=== PATIENT | male | born 1950 | race Asian ===

== ENCOUNTER 2017-05-19 12:19 | Inpatient (IN) | payer SELFPAY ==
[~2017-05-19] VITALS: Ht 170.2 cm; Wt 56.3 kg
[2017-05-19] MEDS ORDERED: CALC-1038 PO (12:29)
[2017-05-19] MEDS ORDERED: EPOE4000 SQ (12:29)
[2017-05-19] MEDS ORDERED: AMLO-512 PO (12:29)
[2017-05-19] MEDS ORDERED: INSNPH SQ (12:29)
[2017-05-19] MEDS ORDERED: FERR-89 PO (12:29)
[2017-05-19 12:37] LABS: GLUCOSE,POINT OF CARE 233 MG/DL (70-110)
[2017-05-19 13:05] LABS: BASOPHILS % (AUTO) 0.5 % (0.0-2.0); HEMATOCRIT 44.7 % (41-53); HEMOGLOBIN 14.9 g/dL (13.5-17.5); LYMPHOCYTES % (AUTO) 25.2 % (22.0-44.0); MEAN CORPUSCULAR HEMOGLOBIN 29.2 pg (26.0-34.0); MEAN CORPUSCULAR HGB CONC 33.4 G/dL (31.0-37.0); MEAN CORPUSCULAR VOLUME 87 fL (80-100); MONOCYTES # (AUTO) 0.7 K/uL (0.1-1.0); NEUTROPHILS # (AUTO) 3.9 K/uL (1.8-7.7); NEUTROPHILS % (AUTO) 49.7 % (40.0-70.0); PLATELET COUNT (AUTO) 131 K/uL (150-450); RED BLOOD CELL COUNT(AUTO) 5.12 MIL/uL (4.50-5.90); RED CELL DISTRIBUTION WIDTH 15.2 % (11.5-14.5); WHITE BLOOD COUNT (AUTO) 7.9 K/uL (4.5-11.0)
[2017-05-19 13:10] LABS: EOSINOPHILS % (AUTO) 15.6 % (1.0-6.0)
[2017-05-19 13:14] LABS: ANION GAP 14 mmol/L (8-16); CALCIUM, TOTAL 8.9 mg/dL (8.8-10.5); CARBON DIOXIDE 21 mmol/L (22-29); CHLORIDE 103 mmol/L (98-107); CREATININE 10.04 mg/dL (0.60-1.30); GLOMERULAR FILTR. RATE CALC 5 mL/min (>60); POTASSIUM 4.3 mmol/L (3.5-5.1); SODIUM SERUM 138 mmol/L (136-145); UREA NITROGEN, BLOOD 86 mg/dL (7-18)
[2017-05-19 13:16] LABS: APPEARANCE,URINE CLEAR (CLEAR); GLUCOSE, URINE (UA) 100 mg/dL (NEGATIVE); KETONES,URINE NEGATIVE (NEGATIVE); LEUKOCYTE ESTERASE ,URINE NEGATIVE (NEGATIVE); PH,URINE 5.5 (5.0-8.0); PROTEIN,URINE SEE CONFIRM (NEGATIVE)
[2017-05-19 13:23] LABS: ADD UA MICROSCOPIC YES; OCCULT BLOOD,URINE SMALL (NEGATIVE); SULFOSALICYLIC ACID,URINE 2+ (Negative)
[2017-05-19 13:24] LABS: SQUAMOUS EPITHELIAL CELL,UR Rare /LPF (None Seen); WBC,URINE 0-2 /HPF (0-5)
[2017-05-19 13:34] LABS: B-TYPE NATRIURETIC PEPTIDE 523 pg/mL (0-100)
[2017-05-19 13:38] LABS: ALANINE AMINOTRANSFERASE 20 U/L (12-78); ALBUMIN 3.3 g/dL (3.4-5.0); ASPARTATE AMINOTRANSFERASE 18 U/L (15-37); BILIRUBIN,TOTAL 0.4 mg/dL (0.1-1.0); CREATINE KINASE MB 1.1 ng/mL (0-5); CREATINE KINASE, TOTAL 108 U/L (39-308); TOTAL PROTEIN, SERUM 7.4 g/dL (6.4-8.2)
[2017-05-19] MEDS ORDERED: 0.9% SODIUM CHLORIDE 10 ML SYRINGE IVP PRN (14:00)
[2017-05-19] MEDS ORDERED: ONDANSETRON HCL 4 MG/2 ML VIAL IVP PRN (14:00)
[2017-05-19] MEDS ORDERED: ACETAMINOPHEN 325 MG TABLET PO PRN (14:00)
[2017-05-19] MEDS: VITAMIN B COMP/VIT C/FOLIC ACID CAPSULE PO SCH (15:00)
[2017-05-19 16:04] VITALS: BP 151/65
[2017-05-19] MEDS ORDERED: INFLUENZA VIRUS VACCINE QVS 2017-18 (3YR+)/PF 60 MCG/0.5 ML SYRINGE IM ONE (16:30)
[2017-05-19] MEDS ORDERED: HEPARIN SODIUM,PORCINE 1,000 UNITS/ML VIAL IVP ONE (17:06)
[2017-05-19 17:08] LABS: GLUCOSE,POINT OF CARE 152 MG/DL (70-110)
[2017-05-19] MEDS ORDERED: SODIUM CHLORIDE 0.9% 2,000 ML IV ONE (17:12)
[2017-05-19 23:15] VITALS: BP 161/64
[2017-05-19] MEDS: AmLODIPine BESYLATE 10 MG TABLET PO SCH (23:17)
[2017-05-19] MEDS: PROMETHAZINE HCL/CODEINE 6.25-10MG/5ML SYRUP UDCUP PO PRN (23:17)
[2017-05-20] VITALS (7 sets, daily range): BP systolic 135–156; BP diastolic 58–73
[2017-05-20] MEDS ORDERED: HEPARIN SODIUM,PORCINE 5,000 UNITS/ML VIAL IV PRN (01:15)
[2017-05-20 01:34] LABS: GLUCOSE,POINT OF CARE 118 MG/DL (70-110)
[2017-05-20] MEDS ORDERED: ACETAMINOPHEN 325 MG TABLET PO PRN (03:30)
[2017-05-20 06:12] LABS: GLUCOSE COMMENT 1 Received Meds; GLUCOSE,POINT OF CARE 169 MG/DL (70-110)
[2017-05-20 06:54] LABS: CHOL/HDL RATIO 2.5 (4.2-7.3)
[2017-05-20] MEDS: VITAMIN B COMP/VIT C/FOLIC ACID CAPSULE PO SCH (09:16)
[2017-05-20] MEDS: AmLODIPine BESYLATE 10 MG TABLET PO SCH (09:16)
[2017-05-20] MEDS ORDERED: HYDROCODONE/ACETAMINOPHEN 5-325 MG TABLET PO PRN (10:00)
[2017-05-20] MEDS ORDERED: BISACODYL 10 MG RECTAL RECTAL SUPPOSITORY PR PRN (10:00)
[2017-05-20] MEDS ORDERED: DEXTROSE 50%-WATER 25 GM/50 ML SYRINGE IVP PRN (10:00)
[2017-05-20] MEDS ORDERED: AmLODIPine BESYLATE 10 MG TABLET PO SCH (10:00)
[2017-05-20] MEDS ORDERED: MAGNESIUM HYDROXIDE SUSPENSION 30 ML UDCUP PO PRN (10:00)
[2017-05-20] MEDS ORDERED: ONDANSETRON HCL 4 MG/2 ML VIAL IVP PRN (10:00)
[2017-05-20] MEDS ORDERED: ZOLPIDEM TARTRATE 5 MG TABLET PO PRN (10:00)
[2017-05-20 11:48] LABS: GLUCOSE COMMENT 1 Received Meds; GLUCOSE,POINT OF CARE 213 MG/DL (70-110)
[2017-05-20] MEDS: INSULIN ASPART 100 UNITS/ML SQ PRN ×2 (11:52→17:58)
[2017-05-20] MEDS: HEPARIN SODIUM,PORCINE 5,000 UNITS/ML VIAL SQ SCH (17:31)
[2017-05-20] MEDS: FERROUS SULFATE 325 MG EC TABLET PO SCH (17:32)
[2017-05-20] MEDS: CALCIUM OYSTER SHELL 500 MG TABLET PO SCH ×2 (17:32→22:04)
[2017-05-20 18:07] LABS: GLUCOSE COMMENT 1 Received Meds; GLUCOSE,POINT OF CARE 225 MG/DL (70-110)
[2017-05-20] MEDS: ALBUTEROL SULFATE 2.5 MG/0.5 ML NEB SOLUTION NEB SCH (20:00)
[2017-05-20] MEDS: DOCUSATE SODIUM 100 MG CAPSULE PO SCH (22:04)
[2017-05-20 22:27] LABS: GLUCOSE,POINT OF CARE 91 MG/DL (70-110)
[2017-05-21] MEDS: HEPARIN SODIUM,PORCINE 5,000 UNITS/ML VIAL SQ SCH ×3 (00:37→17:16)
[2017-05-21 00:41] VITALS: BP 150/67
[2017-05-21] MEDS: ALBUTEROL SULFATE 2.5 MG/0.5 ML NEB SOLUTION NEB SCH ×4 (02:17→20:23)
[2017-05-21 04:44] VITALS: BP 151/67
[2017-05-21] MEDS: PROMETHAZINE HCL/CODEINE 6.25-10MG/5ML SYRUP UDCUP PO PRN (06:20)
[2017-05-21] MEDS: INSULIN ASPART 100 UNITS/ML SQ PRN ×2 (06:39→17:43)
[2017-05-21 06:47] LABS: GLUCOSE,POINT OF CARE 193 MG/DL (70-110)
[2017-05-21 07:22] LABS: CALCIUM, TOTAL 8.6 mg/dL (8.8-10.5); CREATININE 7.25 mg/dL (0.60-1.30); MAGNESIUM 2.4 mg/dL (1.80-2.40); PHOSPHORUS 4.1 mg/dL (2.5-4.9); POTASSIUM 3.9 mmol/L (3.5-5.1)
[2017-05-21 07:30] VITALS: BP 164/78
[2017-05-21] MEDS: AmLODIPine BESYLATE 10 MG TABLET PO SCH (08:13)
[2017-05-21] MEDS: VITAMIN B COMP/VIT C/FOLIC ACID CAPSULE PO SCH (08:13)
[2017-05-21] MEDS: DOCUSATE SODIUM 100 MG CAPSULE PO SCH (08:13)
[2017-05-21] MEDS: FERROUS SULFATE 325 MG EC TABLET PO SCH ×2 (08:13→17:45)
[2017-05-21] MEDS: PANTOPRAZOLE SODIUM 40 MG DR TABLET PO SCH (08:13)
[2017-05-21] MEDS: CALCIUM OYSTER SHELL 500 MG TABLET PO SCH ×2 (08:29→17:16)
[2017-05-21] MEDS: ACETAMINOPHEN 325 MG TABLET PO PRN (10:27)
[2017-05-21 13:07] LABS: GLUCOSE,POINT OF CARE 211 MG/DL (70-110)
[2017-05-21] MEDS ORDERED: SODIUM CHLORIDE 0.9% 1,000 ML IV ONE ×2 (18:37)
[2017-05-21] MEDS ORDERED: MANNITOL 25%-12.5 GM/50 ML VIAL IVP PRN (20:00)
[2017-05-21 20:16] LABS: GLUCOSE,POINT OF CARE 242 MG/DL (70-110)
[2017-05-22] VITALS (7 sets, daily range): BP systolic 138–164; BP diastolic 58–81
[2017-05-22] MEDS: CALCIUM OYSTER SHELL 500 MG TABLET PO SCH ×4 (00:01→21:01)
[2017-05-22] MEDS: DOCUSATE SODIUM 100 MG CAPSULE PO SCH ×3 (00:01→21:01)
[2017-05-22] MEDS: HEPARIN SODIUM,PORCINE 5,000 UNITS/ML VIAL SQ SCH ×3 (00:01→21:02)
[2017-05-22 01:17] LABS: GLUCOSE,POINT OF CARE 125 MG/DL (70-110)
[2017-05-22] MEDS: ALBUTEROL SULFATE 2.5 MG/0.5 ML NEB SOLUTION NEB SCH ×4 (02:41→21:20)
[2017-05-22] MEDS: PROMETHAZINE HCL/CODEINE 6.25-10MG/5ML SYRUP UDCUP PO PRN (02:49)
[2017-05-22] MEDS: MORPHINE SULFATE 2 MG/ML SYRINGE IVP PRN (02:49)
[2017-05-22 06:07] LABS: GLUCOSE COMMENT 1 Received Meds; GLUCOSE,POINT OF CARE 217 MG/DL (70-110)
[2017-05-22] MEDS: INSULIN ASPART 100 UNITS/ML SQ PRN ×3 (06:16→22:22)
[2017-05-22] MEDS: PANTOPRAZOLE SODIUM 40 MG DR TABLET PO SCH (08:53)
[2017-05-22] MEDS: FERROUS SULFATE 325 MG EC TABLET PO SCH ×2 (08:54→17:59)
[2017-05-22] MEDS: AmLODIPine BESYLATE 10 MG TABLET PO SCH (08:54)
[2017-05-22] MEDS: ACETAMINOPHEN 325 MG TABLET PO PRN ×2 (08:55→21:13)
[2017-05-22] MEDS: VITAMIN B COMP/VIT C/FOLIC ACID CAPSULE PO SCH (08:59)
[2017-05-22 12:18] LABS: GLUCOSE,POINT OF CARE 186 MG/DL (70-110)
[2017-05-22 18:42] LABS: GLUCOSE,POINT OF CARE 136 MG/DL (70-110)
[2017-05-22 22:41] LABS: GLUCOSE COMMENT 1 Received Meds; GLUCOSE,POINT OF CARE 155 MG/DL (70-110)
[2017-05-23 02:57] LABS: GLUCOSE COMMENT 1 Post Meal; GLUCOSE,POINT OF CARE 154 MG/DL (70-110)
[2017-05-23] MEDS: ALBUTEROL SULFATE 2.5 MG/0.5 ML NEB SOLUTION NEB SCH ×4 (03:27→20:41)
[2017-05-23 05:00] VITALS: BP 144/56
[2017-05-23 05:08] LABS: GLUCOSE COMMENT 1 Received Meds; GLUCOSE,POINT OF CARE 174 MG/DL (70-110)
[2017-05-23] MEDS: INSULIN ASPART 100 UNITS/ML SQ PRN ×3 (06:06→17:53)
[2017-05-23 08:00] VITALS: BP 161/86
[2017-05-23] MEDS: DOCUSATE SODIUM 100 MG CAPSULE PO SCH ×2 (09:31→21:00)
[2017-05-23] MEDS: HEPARIN SODIUM,PORCINE 5,000 UNITS/ML VIAL SQ SCH ×2 (09:31→23:28)
[2017-05-23] MEDS: PANTOPRAZOLE SODIUM 40 MG DR TABLET PO SCH (09:31)
[2017-05-23] MEDS: CALCIUM OYSTER SHELL 500 MG TABLET PO SCH ×3 (09:31→23:28)
[2017-05-23] MEDS: VITAMIN B COMP/VIT C/FOLIC ACID CAPSULE PO SCH (09:31)
[2017-05-23] MEDS: FERROUS SULFATE 325 MG EC TABLET PO SCH ×2 (09:31→17:52)
[2017-05-23] MEDS ORDERED: MANNITOL 25%-12.5 GM/50 ML VIAL IVP PRN (10:45)
[2017-05-23 12:10] VITALS: BP 180/80
[2017-05-23 14:32] LABS: GLUCOSE COMMENT 1 Received Meds; GLUCOSE,POINT OF CARE 158 MG/DL (70-110)
[2017-05-23 16:21] VITALS: BP 159/72
[2017-05-23] MEDS: AmLODIPine BESYLATE 10 MG TABLET PO SCH (17:52)
[2017-05-23 19:17] LABS: GLUCOSE,POINT OF CARE 159 MG/DL (70-110)
[2017-05-23 20:00] VITALS: BP 179/87
[2017-05-23] MEDS: CloNIDine HCL 0.1 MG TABLET PO PRN (20:35)
[2017-05-23] MEDS: MORPHINE SULFATE 2 MG/ML SYRINGE IVP PRN (20:47)
[2017-05-23 22:27] LABS: GLUCOSE COMMENT 1 Juice/Food/D50 Given; GLUCOSE,POINT OF CARE 143 MG/DL (70-110)
[2017-05-23 23:53] VITALS: BP 145/70
[2017-05-24] VITALS (7 sets, daily range): BP systolic 126–169; BP diastolic 48–98
[2017-05-24] MEDS: ALBUTEROL SULFATE 2.5 MG/0.5 ML NEB SOLUTION NEB SCH ×4 (02:00→20:42)
[2017-05-24] MEDS: CloNIDine HCL 0.1 MG TABLET PO PRN (05:24)
[2017-05-24] MEDS: INSULIN ASPART 100 UNITS/ML SQ PRN ×3 (06:13→21:25)
[2017-05-24 06:42] LABS: GLUCOSE COMMENT 1 Juice/Food/D50 Given; GLUCOSE,POINT OF CARE 167 MG/DL (70-110)
[2017-05-24] MEDS: VITAMIN B COMP/VIT C/FOLIC ACID CAPSULE PO SCH (08:11)
[2017-05-24] MEDS: PANTOPRAZOLE SODIUM 40 MG DR TABLET PO SCH (08:11)
[2017-05-24] MEDS: HEPARIN SODIUM,PORCINE 5,000 UNITS/ML VIAL SQ SCH ×2 (08:11→21:24)
[2017-05-24] MEDS: AmLODIPine BESYLATE 10 MG TABLET PO SCH (08:11)
[2017-05-24] MEDS: DOCUSATE SODIUM 100 MG CAPSULE PO SCH ×2 (08:11→21:24)
[2017-05-24] MEDS: FERROUS SULFATE 325 MG EC TABLET PO SCH ×2 (08:11→17:11)
[2017-05-24] MEDS: CALCIUM OYSTER SHELL 500 MG TABLET PO SCH ×3 (12:25→21:24)
[2017-05-24 18:03] LABS: GLUCOSE,POINT OF CARE 235 MG/DL (70-110)
[2017-05-24 18:03] LABS: GLUCOSE,POINT OF CARE 110 MG/DL (70-110)
[2017-05-24] MEDS ORDERED: 0.9% SODIUM CHLORIDE 5 ML NEB SOLUTION NEB ONE (20:39)
[2017-05-24 21:02] LABS: GLUCOSE,POINT OF CARE 173 MG/DL (70-110)
[2017-05-25 00:01] VITALS: BP 142/54
[2017-05-25] MEDS: ALBUTEROL SULFATE 2.5 MG/0.5 ML NEB SOLUTION NEB SCH ×4 (01:54→20:18)
[2017-05-25 04:52] VITALS: BP 144/59
[2017-05-25 07:22] LABS: GLUCOSE,POINT OF CARE 121 MG/DL (70-110)
[2017-05-25 07:39] VITALS: BP 167/69
[2017-05-25] MEDS: FERROUS SULFATE 325 MG EC TABLET PO SCH ×2 (08:13→17:32)
[2017-05-25] MEDS: VITAMIN B COMP/VIT C/FOLIC ACID CAPSULE PO SCH (08:13)
[2017-05-25] MEDS: PANTOPRAZOLE SODIUM 40 MG DR TABLET PO SCH (08:13)
[2017-05-25] MEDS: AmLODIPine BESYLATE 10 MG TABLET PO SCH (08:13)
[2017-05-25] MEDS: DOCUSATE SODIUM 100 MG CAPSULE PO SCH ×2 (08:13→20:34)
[2017-05-25] MEDS: HEPARIN SODIUM,PORCINE 5,000 UNITS/ML VIAL SQ SCH ×2 (08:14→20:34)
[2017-05-25] MEDS: CALCIUM OYSTER SHELL 500 MG TABLET PO SCH ×3 (08:14→20:34)
[2017-05-25 11:17] VITALS: BP 167/71
[2017-05-25 11:30] LABS: CALCIUM, TOTAL 9.3 mg/dL (8.8-10.5); CREATININE 6.92 mg/dL (0.60-1.30); POTASSIUM 4.6 mmol/L (3.5-5.1)
[2017-05-25 11:34] LABS: ALBUMIN 3.1 g/dL (3.4-5.0); PHOSPHORUS 4.3 mg/dL (2.5-4.9)
[2017-05-25 12:02] LABS: GLUCOSE,POINT OF CARE 206 MG/DL (70-110)
[2017-05-25] MEDS: INSULIN ASPART 100 UNITS/ML SQ PRN (17:36)
[2017-05-25 17:42] LABS: GLUCOSE,POINT OF CARE 265 MG/DL (70-110)
[2017-05-25 19:25] VITALS: BP 141/62
[2017-05-25] MEDS ORDERED: 0.9% SODIUM CHLORIDE 5 ML NEB SOLUTION NEB ONE (19:27)
[2017-05-25 23:19] VITALS: BP 125/62
[2017-05-26] MEDS ORDERED: 0.9% SODIUM CHLORIDE 5 ML NEB SOLUTION NEB ONE ×4 (02:31→20:02)
[2017-05-26] MEDS: ALBUTEROL SULFATE 2.5 MG/0.5 ML NEB SOLUTION NEB SCH ×4 (02:35→20:03)
[2017-05-26 03:13] LABS: GLUCOSE,POINT OF CARE 134 MG/DL (70-110)
[2017-05-26 04:37] VITALS: BP 155/63
[2017-05-26] MEDS: INSULIN ASPART 100 UNITS/ML SQ PRN ×2 (06:42→17:52)
[2017-05-26 07:33] VITALS: BP 153/69
[2017-05-26] MEDS: CALCIUM OYSTER SHELL 500 MG TABLET PO SCH ×3 (08:43→20:05)
[2017-05-26] MEDS: HEPARIN SODIUM,PORCINE 5,000 UNITS/ML VIAL SQ SCH ×2 (08:43→20:06)
[2017-05-26] MEDS: VITAMIN B COMP/VIT C/FOLIC ACID CAPSULE PO SCH (08:43)
[2017-05-26] MEDS: DOCUSATE SODIUM 100 MG CAPSULE PO SCH ×2 (08:43→20:05)
[2017-05-26] MEDS: PANTOPRAZOLE SODIUM 40 MG DR TABLET PO SCH (08:43)
[2017-05-26] MEDS: AmLODIPine BESYLATE 10 MG TABLET PO SCH (08:43)
[2017-05-26] MEDS: FERROUS SULFATE 325 MG EC TABLET PO SCH ×2 (08:43→17:02)
[2017-05-26 10:58] VITALS: BP 147/67
[2017-05-26 15:12] LABS: GLUCOSE COMMENT 1 Received Meds; GLUCOSE,POINT OF CARE 248 MG/DL (70-110)
[2017-05-26 15:27] LABS: GLUCOSE,POINT OF CARE 123 MG/DL (70-110)
[2017-05-26 15:47] VITALS: BP 152/70
[2017-05-26 19:20] VITALS: BP 152/59
[2017-05-26 19:27] LABS: GLUCOSE COMMENT 1 Received Meds; GLUCOSE,POINT OF CARE 245 MG/DL (70-110)
[2017-05-26 21:22] LABS: GLUCOSE,POINT OF CARE 114 MG/DL (70-110)
[2017-05-26 23:49] VITALS: BP 143/66
[2017-05-27] VITALS (7 sets, daily range): BP systolic 128–188; BP diastolic 59–79
[2017-05-27] MEDS ORDERED: 0.9% SODIUM CHLORIDE 5 ML NEB SOLUTION NEB ONE ×4 (02:40→18:53)
[2017-05-27] MEDS: ALBUTEROL SULFATE 2.5 MG/0.5 ML NEB SOLUTION NEB SCH ×4 (02:44→19:08)
[2017-05-27] MEDS: INSULIN ASPART 100 UNITS/ML SQ PRN ×4 (05:30→20:41)
[2017-05-27 06:33] LABS: GLUCOSE COMMENT 1 Received Meds; GLUCOSE,POINT OF CARE 237 MG/DL (70-110)
[2017-05-27] MEDS: VITAMIN B COMP/VIT C/FOLIC ACID CAPSULE PO SCH (08:14)
[2017-05-27] MEDS: HEPARIN SODIUM,PORCINE 5,000 UNITS/ML VIAL SQ SCH ×2 (08:15→20:05)
[2017-05-27] MEDS: PANTOPRAZOLE SODIUM 40 MG DR TABLET PO SCH (08:15)
[2017-05-27] MEDS: DOCUSATE SODIUM 100 MG CAPSULE PO SCH ×2 (08:15→20:05)
[2017-05-27] MEDS: AmLODIPine BESYLATE 10 MG TABLET PO SCH (08:15)
[2017-05-27] MEDS: CloNIDine HCL 0.1 MG TABLET PO PRN (08:15)
[2017-05-27] MEDS: CALCIUM OYSTER SHELL 500 MG TABLET PO SCH ×3 (08:15→20:05)
[2017-05-27] MEDS: FERROUS SULFATE 325 MG EC TABLET PO SCH ×2 (08:15→17:16)
[2017-05-27 13:52] LABS: GLUCOSE COMMENT 1 Repeated; GLUCOSE,POINT OF CARE 255 MG/DL (70-110)
[2017-05-27 13:52] LABS: GLUCOSE COMMENT 1 Juice/Food/D50 Given; GLUCOSE,POINT OF CARE 66 MG/DL (70-110)
[2017-05-27 17:52] LABS: GLUCOSE COMMENT 1 Received Meds; GLUCOSE,POINT OF CARE 166 MG/DL (70-110)
[2017-05-27 17:52] LABS: GLUCOSE COMMENT 1 Received Meds; GLUCOSE,POINT OF CARE 301 MG/DL (70-110)
[2017-05-28] MEDS ORDERED: 0.9% SODIUM CHLORIDE 5 ML NEB SOLUTION NEB ONE ×4 (01:47→19:00)
[2017-05-28] MEDS: ALBUTEROL SULFATE 2.5 MG/0.5 ML NEB SOLUTION NEB SCH ×4 (02:02→20:24)
[2017-05-28 05:18] VITALS: BP 156/59
[2017-05-28] MEDS: INSULIN ASPART 100 UNITS/ML SQ PRN ×2 (05:34→12:17)
[2017-05-28 06:17] LABS: GLUCOSE COMMENT 1 Received Meds; GLUCOSE,POINT OF CARE 223 MG/DL (70-110)
[2017-05-28 06:22] LABS: GLUCOSE COMMENT 1 Received Meds; GLUCOSE,POINT OF CARE 361 MG/DL (70-110)
[2017-05-28 07:41] VITALS: BP 167/71
[2017-05-28] MEDS: CALCIUM OYSTER SHELL 500 MG TABLET PO SCH ×3 (08:04→19:55)
[2017-05-28] MEDS: AmLODIPine BESYLATE 10 MG TABLET PO SCH (08:04)
[2017-05-28] MEDS: VITAMIN B COMP/VIT C/FOLIC ACID CAPSULE PO SCH (08:04)
[2017-05-28] MEDS: HEPARIN SODIUM,PORCINE 5,000 UNITS/ML VIAL SQ SCH ×2 (08:04→21:04)
[2017-05-28] MEDS: PANTOPRAZOLE SODIUM 40 MG DR TABLET PO SCH (08:04)
[2017-05-28] MEDS: FERROUS SULFATE 325 MG EC TABLET PO SCH ×2 (08:04→19:55)
[2017-05-28] MEDS: DOCUSATE SODIUM 100 MG CAPSULE PO SCH ×2 (08:04→19:55)
[2017-05-28 11:36] VITALS: BP 143/59
[2017-05-28 12:03] LABS: GLUCOSE COMMENT 1 Received Meds; GLUCOSE,POINT OF CARE 190 MG/DL (70-110)
[2017-05-28] MEDS ORDERED: SODIUM CHLORIDE 0.9% 2,000 ML IV ONE (14:48)
[2017-05-28 17:37] LABS: GLUCOSE COMMENT 1 Received Meds; GLUCOSE,POINT OF CARE 146 MG/DL (70-110)
[2017-05-28 19:27] VITALS: BP 165/92
[2017-05-28] MEDS ORDERED: MANNITOL 25%-12.5 GM/50 ML VIAL IVP PRN (20:00)
[2017-05-28] MEDS ORDERED: DiphenhydrAMINE HCL 50 MG/ML VIAL IM PRN (21:45)
[2017-05-28] MEDS ORDERED: DiphenhydrAMINE HCL 25 MG CAPSULE PO PRN (22:30)
[2017-05-28 23:01] VITALS: BP 164/72
[2017-05-28 23:07] LABS: GLUCOSE COMMENT 1 Received Meds; GLUCOSE,POINT OF CARE 146 MG/DL (70-110)
[2017-05-29] MEDS: ALBUTEROL SULFATE 2.5 MG/0.5 ML NEB SOLUTION NEB SCH ×5 (02:00→19:57)
[2017-05-29] MEDS ORDERED: 0.9% SODIUM CHLORIDE 5 ML NEB SOLUTION NEB ONE ×4 (03:05→19:37)
[2017-05-29 04:31] VITALS: BP 163/72
[2017-05-29 08:08] VITALS: BP 162/73
[2017-05-29] MEDS: PANTOPRAZOLE SODIUM 40 MG DR TABLET PO SCH (08:37)
[2017-05-29] MEDS: AmLODIPine BESYLATE 10 MG TABLET PO SCH (08:37)
[2017-05-29] MEDS: CALCIUM OYSTER SHELL 500 MG TABLET PO SCH ×3 (08:37→20:31)
[2017-05-29] MEDS: FERROUS SULFATE 325 MG EC TABLET PO SCH ×2 (08:37→16:51)
[2017-05-29] MEDS: HEPARIN SODIUM,PORCINE 5,000 UNITS/ML VIAL SQ SCH ×2 (08:37→20:31)
[2017-05-29] MEDS: DOCUSATE SODIUM 100 MG CAPSULE PO SCH ×2 (08:37→20:31)
[2017-05-29] MEDS: VITAMIN B COMP/VIT C/FOLIC ACID CAPSULE PO SCH (08:37)
[2017-05-29 10:00] LABS: BASOPHILS # (AUTO) 0.03 K/uL (0.00-0.20); BASOPHILS % (AUTO) 0.2 % (0.0-2.0); EOSINOPHILS # (AUTO) 0.05 K/uL (0.00-0.70); EOSINOPHILS % (AUTO) 0.33 % (1.0-6.0); HEMOGLOBIN 15.4 g/dL (13.5-17.5); LYMPHOCYTES # (AUTO) 0.4 K/uL (1.0-4.8); LYMPHOCYTES % (AUTO) 2.6 % (22.0-44.0); MEAN CORPUSCULAR HEMOGLOBIN 28.6 pg (26.0-34.0); MEAN CORPUSCULAR HGB CONC 32.8 G/dL (31.0-37.0); MEAN CORPUSCULAR VOLUME 87 fL (80-100); MONOCYTES # (AUTO) 0.1 K/uL (0.1-1.0); MONOCYTES % (AUTO) 0.7 % (2.0-9.0); NEUTROPHILS # (AUTO) 13.6 K/uL (1.8-7.7); PLATELET COUNT (AUTO) 109 K/uL (150-450); RED BLOOD CELL COUNT(AUTO) 5.39 MIL/uL (4.50-5.90); RED CELL DISTRIBUTION WIDTH 13.9 % (11.5-14.5); WHITE BLOOD COUNT (AUTO) 14.2 K/uL (4.5-11.0)
[2017-05-29 10:01] LABS: NEUTROPHILS % (AUTO) 96.2 % (40.0-70.0); RBC MORPHOLOGY COMMENT NORMAL RBC MORPH
[2017-05-29 10:13] LABS: CALCIUM, TOTAL 9.3 mg/dL (8.8-10.5); CREATININE 5.18 mg/dL (0.60-1.30); POTASSIUM 4.8 mmol/L (3.5-5.1)
[2017-05-29 10:14] LABS: MAGNESIUM 1.9 mg/dL (1.80-2.40); PHOSPHORUS 2.5 mg/dL (2.5-4.9)
[2017-05-29 10:52] LABS: GLUCOSE,POINT OF CARE 135 MG/DL (70-110)
[2017-05-29 11:19] VITALS: BP 143/67
[2017-05-29 11:48] LABS: GLUCOSE,POINT OF CARE 233 MG/DL (70-110)
[2017-05-29] MEDS: INSULIN ASPART 100 UNITS/ML SQ PRN ×3 (11:52→20:32)
[2017-05-29 15:34] VITALS: BP 150/66
[2017-05-29 17:02] LABS: GLUCOSE COMMENT 1 Received Meds; GLUCOSE,POINT OF CARE 150 MG/DL (70-110)
[2017-05-29 19:26] VITALS: BP 149/59
[2017-05-29 23:16] LABS: GLUCOSE,POINT OF CARE 165 MG/DL (70-110)
[2017-05-29 23:22] VITALS: BP 146/61
[2017-05-30] MEDS ORDERED: 0.9% SODIUM CHLORIDE 5 ML NEB SOLUTION NEB ONE ×3 (02:13→14:45)
[2017-05-30] MEDS: ALBUTEROL SULFATE 2.5 MG/0.5 ML NEB SOLUTION NEB SCH ×3 (02:29→14:00)
[2017-05-30 03:55] VITALS: BP 139/67
[2017-05-30 06:23] LABS: GLUCOSE,POINT OF CARE 136 MG/DL (70-110)
[2017-05-30 07:14] VITALS: BP 157/65
[2017-05-30] MEDS: CALCIUM OYSTER SHELL 500 MG TABLET PO SCH (08:09)
[2017-05-30] MEDS: PANTOPRAZOLE SODIUM 40 MG DR TABLET PO SCH (08:09)
[2017-05-30] MEDS: AmLODIPine BESYLATE 10 MG TABLET PO SCH (08:09)
[2017-05-30] MEDS: VITAMIN B COMP/VIT C/FOLIC ACID CAPSULE PO SCH (08:09)
[2017-05-30] MEDS: DOCUSATE SODIUM 100 MG CAPSULE PO SCH (08:10)
[2017-05-30] MEDS: HEPARIN SODIUM,PORCINE 5,000 UNITS/ML VIAL SQ SCH (08:10)
[2017-05-30] MEDS: FERROUS SULFATE 325 MG EC TABLET PO SCH (08:10)
[2017-05-30 11:51] LABS: GLUCOSE COMMENT 1 Received Meds; GLUCOSE,POINT OF CARE 194 MG/DL (70-110)
[2017-05-30 12:09] VITALS: BP 184/64
[2017-05-30] MEDS ORDERED: GABA-529 PO (12:14)
[2017-05-30] MEDS ORDERED: OS500 PO (12:14)
[2017-05-30] MEDS ORDERED: FOLI1CAP2 PO (12:15)
[2017-05-30] MEDS ORDERED: GABAPENTIN 100 MG CAPSULE PO SCH (21:00)
== END 2017-05-30 12:30 | disposition home or self-care (01) | DRG 682 ==
LOC: EMS 12:21 → 6N 14:18 → 4E 05-20 18:35 → 6N 05-24 20:36
PROVIDERS: ADMIT Internal Medicine; ATTEND Internal Medicine
PROC: 5A1D70Z Performance of Urinary Filtration, Intermittent, Less than 6 Hours Per Day (ICD-10-PCS; principal; 2017-05-19)
PROC: 5A1D70Z Performance of Urinary Filtration, Intermittent, Less than 6 Hours Per Day (ICD-10-PCS; 2017-05-21)
PROC: 5A1D70Z Performance of Urinary Filtration, Intermittent, Less than 6 Hours Per Day (ICD-10-PCS; 2017-05-23)
PROC: 5A1D70Z Performance of Urinary Filtration, Intermittent, Less than 6 Hours Per Day (ICD-10-PCS; 2017-05-25)
PROC: 5A1D70Z Performance of Urinary Filtration, Intermittent, Less than 6 Hours Per Day (ICD-10-PCS; 2017-05-28)
PROC: 3E0234Z Introduction of Serum, Toxoid and Vaccine into Muscle, Percutaneous Approach (ICD-10-PCS; 2017-05-28)
DX: I12.0 Hypertensive chronic kidney disease with stage 5 chronic kidney disease or end stage renal disease (principal); N18.6 End stage renal disease; E11.22 Type 2 diabetes mellitus with diabetic chronic kidney disease; N40.0 Benign prostatic hyperplasia without lower urinary tract symptoms; Z79.4 Long term (current) use of insulin; Z99.2 Dependence on renal dialysis; Z23 Encounter for immunization
CPT/HCPCS: 71020; 76770; 82962; 83036; 83735; 84100; 86704; 86706; 87040; 87081; 87340; 90471; 90935; 93005; 94640; 99285; J1644; J2270; J2405; J7030

== ENCOUNTER 2017-07-09 13:53 | Inpatient (IN) | payer MEDICAID ==
[~2017-07-09] VITALS: Ht 170.2 cm; Wt 59.4 kg
[~2017-07-09 13:53] MED LIST: AMLO-512 PO; CALC-1038 PO; FERR-89 PO; FOLI1CAP2 PO; GABA-529 PO; INSNPH SQ; OS500 PO
[2017-07-09 14:09] LABS: GLUCOSE,POINT OF CARE 267 MG/DL (70-110)
[2017-07-09 14:38] LABS: BASOPHILS % (AUTO) 0.4 % (0.0-2.0); EOSINOPHILS % (AUTO) 0.7 % (1.0-6.0); HEMATOCRIT 33.9 % (41-53); HEMOGLOBIN 11.6 g/dL (13.5-17.5); LYMPHOCYTES # (AUTO) 1.2 K/uL (1.0-4.8); LYMPHOCYTES % (AUTO) 9.2 % (22.0-44.0); MEAN CORPUSCULAR HEMOGLOBIN 29.3 pg (26.0-34.0); MEAN CORPUSCULAR HGB CONC 34.1 G/dL (31.0-37.0); MEAN CORPUSCULAR VOLUME 86 fL (80-100); MONOCYTES # (AUTO) 0.8 K/uL (0.1-1.0); MONOCYTES % (AUTO) 6.4 % (2.0-9.0); NEUTROPHILS # (AUTO) 10.9 K/uL (1.8-7.7); NEUTROPHILS % (AUTO) 83.3 % (40.0-70.0); PLATELET COUNT (AUTO) 185 K/uL (150-450); RED BLOOD CELL COUNT(AUTO) 3.94 MIL/uL (4.50-5.90); RED CELL DISTRIBUTION WIDTH 13.4 % (11.5-14.5)
[2017-07-09 14:48] LABS: APPEARANCE,URINE CLEAR (CLEAR); BILIRUBIN,URINE NEGATIVE (NEGATIVE); GLUCOSE, URINE (UA) 500 mg/dL (NEGATIVE); KETONES,URINE NEGATIVE (NEGATIVE); LEUKOCYTE ESTERASE ,URINE NEGATIVE (NEGATIVE); NITRATE,URINE NEGATIVE (NEGATIVE); OCCULT BLOOD,URINE MODERATE (NEGATIVE); PROTEIN,URINE SEE CONFIRM (NEGATIVE); UROBILINOGEN,URINE 0.2 mg/dL (<=1.0)
[2017-07-09 14:57] LABS: CALCIUM, TOTAL 9.6 mg/dL (8.8-10.5); CREATININE 8.61 mg/dL (0.60-1.30); POTASSIUM 3.6 mmol/L (3.5-5.1)
[2017-07-09 15:01] LABS: SULFOSALICYLIC ACID,URINE 3+ (Negative)
[2017-07-09 15:03] LABS: RBC,URINE 0-2 /HPF (0-2); WBC,URINE 0-2 /HPF (0-5)
[2017-07-09 15:04] LABS: ALBUMIN 3.7 g/dL (3.4-5.0); BILIRUBIN,TOTAL 0.8 mg/dL (0.1-1.0); TOTAL PROTEIN, SERUM 8.3 g/dL (6.4-8.2)
[2017-07-09 15:04] LABS: BACTERIA,URINE None Seen /HPF (None Seen); SQUAMOUS EPITHELIAL CELL,UR Few /LPF (None Seen)
[2017-07-09] MEDS ORDERED: ONDANSETRON HCL 4 MG/2 ML VIAL IVP ONE (17:00)
[2017-07-09 17:14] LABS: PROTHROMBIN TIME 10.6 SEC (9.4-11.6)
[2017-07-09 19:10] LABS: INFLUENZA TYPE A NEGATIVE FOR TYPE A (NEGATIVE); INFLUENZA TYPE B NEGATIVE FOR TYPE B (NEGATIVE)
[2017-07-09] MEDS ORDERED: ACETAMINOPHEN 325 MG TABLET PO PRN ×2 (20:30→21:15)
[2017-07-09] MEDS ORDERED: 0.9% SODIUM CHLORIDE 10 ML SYRINGE IVP PRN (20:30)
[2017-07-09] MEDS ORDERED: ONDANSETRON HCL 4 MG/2 ML VIAL IVP PRN ×2 (20:30→21:15)
[2017-07-09] MEDS ORDERED: ALBUTEROL SULFATE 2.5 MG/0.5 ML NEB SOLUTION NEB PRN (21:15)
[2017-07-09] MEDS ORDERED: BISACODYL 10 MG RECTAL RECTAL SUPPOSITORY PR PRN (21:15)
[2017-07-09] MEDS ORDERED: OxyCODONE HCL/ACETAMINOPHEN 5-325 MG TABLET PO PRN (21:15)
[2017-07-09] MEDS ORDERED: MAGNESIUM HYDROXIDE SUSPENSION 30 ML UDCUP PO PRN (21:15)
[2017-07-09] MEDS ORDERED: ZOLPIDEM TARTRATE 5 MG TABLET PO PRN (21:15)
[2017-07-09] MEDS ORDERED: DEXTROSE 50%-WATER 25 GM/50 ML SYRINGE IVP PRN (21:15)
[2017-07-09] MEDS ORDERED: IPRATROPIUM BROMIDE 0.5 MG/2.5 ML NEB SOLUTION NEB PRN (21:15)
[2017-07-09] MEDS ORDERED: GABAPENTIN 100 MG CAPSULE PO SCH (21:58)
[2017-07-09 22:05] VITALS: BP 183/71
[2017-07-09] MEDS: INSULIN ASPART 100 UNITS/ML SQ PRN (22:14)
[2017-07-09 23:32] VITALS: BP 142/55
[2017-07-10 04:55] VITALS: BP 132/62
[2017-07-10 05:54] LABS: GLUCOMETER DEV NAME(LOC) 5S 1L; GLUCOSE,POINT OF CARE 157 MG/DL (70-110)
[2017-07-10 05:54] LABS: GLUCOMETER DEV NAME(LOC) 5S 1L; GLUCOSE,POINT OF CARE 222 MG/DL (70-110)
[2017-07-10 06:16] LABS: BASOPHILS # (AUTO) 0.04 K/uL (0.00-0.20); BASOPHILS % (AUTO) 0.3 % (0.0-2.0); EOSINOPHILS # (AUTO) 0.28 K/uL (0.00-0.70); EOSINOPHILS % (AUTO) 2.57 % (1.0-6.0); HEMATOCRIT 30.9 % (41-53); HEMOGLOBIN 10.7 g/dL (13.5-17.5); LYMPHOCYTES # (AUTO) 2.1 K/uL (1.0-4.8); LYMPHOCYTES % (AUTO) 19.3 % (22.0-44.0); MEAN CORPUSCULAR HEMOGLOBIN 29.4 pg (26.0-34.0); MEAN CORPUSCULAR HGB CONC 34.5 G/dL (31.0-37.0); MEAN CORPUSCULAR VOLUME 85 fL (80-100); MONOCYTES # (AUTO) 1.1 K/uL (0.1-1.0); MONOCYTES % (AUTO) 10.1 % (2.0-9.0); NEUTROPHILS # (AUTO) 7.3 K/uL (1.8-7.7); NEUTROPHILS % (AUTO) 67.7 % (40.0-70.0); PLATELET COUNT (AUTO) 158 K/uL (150-450); RED BLOOD CELL COUNT(AUTO) 3.63 MIL/uL (4.50-5.90); RED CELL DISTRIBUTION WIDTH 13.7 % (11.5-14.5)
[2017-07-10] MEDS: INSULIN ASPART 100 UNITS/ML SQ PRN (06:20)
[2017-07-10 06:49] LABS: ALBUMIN 3.1 g/dL (3.4-5.0); BILIRUBIN,TOTAL 0.8 mg/dL (0.1-1.0); CALCIUM, TOTAL 9.2 mg/dL (8.8-10.5); CREATININE 9.29 mg/dL (0.60-1.30); MAGNESIUM 2.3 mg/dL (1.80-2.40); PHOSPHORUS 5.8 mg/dL (2.5-4.9); POTASSIUM 3.6 mmol/L (3.5-5.1); TOTAL PROTEIN, SERUM 7.1 g/dL (6.4-8.2)
[2017-07-10 07:07] LABS: HEMOGLOBIN A1C 8.4 % (4.5-6.2)
[2017-07-10 07:26] VITALS: BP 139/47
[2017-07-10] MEDS: CALCIUM OYSTER SHELL 500 MG TABLET PO SCH ×2 (07:49→17:36)
[2017-07-10] MEDS: FERROUS SULFATE 325 MG EC TABLET PO SCH ×2 (07:49→17:36)
[2017-07-10] MEDS ORDERED: SODIUM CHLORIDE 0.9% 1,000 ML IV ONE (08:20)
[2017-07-10] MEDS ORDERED: VITAMIN B COMP/VIT C/FOLIC ACID CAPSULE PO SCH (09:00)
[2017-07-10] MEDS ORDERED: PANTOPRAZOLE SODIUM 40 MG DR TABLET PO SCH (09:00)
[2017-07-10] MEDS ORDERED: AmLODIPine BESYLATE 10 MG TABLET PO SCH (09:00)
[2017-07-10 11:24] VITALS: BP 136/59
[2017-07-10 15:13] LABS: GLUCOMETER DEV NAME(LOC) 5N 1M; GLUCOSE,POINT OF CARE 112 MG/DL (70-110)
[2017-07-10 15:36] VITALS: BP 144/51
[2017-07-10] MEDS ORDERED: ACETAMINOPHEN 325 MG TABLET PO ONE (17:34)
== END 2017-07-10 17:35 | disposition home or self-care (01) | DRG 470 ==
LOC: EMS 13:55 → 5N 20:30 → UNDODISIN 07-10 14:50
PROVIDERS: ADMIT Internal Medicine; ATTEND Internal Medicine
PROC: 5A1D70Z Performance of Urinary Filtration, Intermittent, Less than 6 Hours Per Day (ICD-10-PCS; principal; 2017-07-10)
DX: I12.0 Hypertensive chronic kidney disease with stage 5 chronic kidney disease or end stage renal disease (principal); N18.6 End stage renal disease; E11.22 Type 2 diabetes mellitus with diabetic chronic kidney disease; K31.84 Gastroparesis; E87.1 Hypo-osmolality and hyponatremia; E11.43 Type 2 diabetes mellitus with diabetic autonomic (poly)neuropathy; E11.65 Type 2 diabetes mellitus with hyperglycemia; E78.5 Hyperlipidemia, unspecified; Z79.4 Long term (current) use of insulin; Z99.2 Dependence on renal dialysis; Z79.899 Other long term (current) drug therapy; Z91.15 Patient's noncompliance with renal dialysis
CPT/HCPCS: 82962; 83036; 83735; 84100; 87081; 87340; 87804; 93005; 96374; 99285; J2405; J7030

== ENCOUNTER 2017-10-03 03:33 | Emergency (ER) | payer MEDICAID, OTHER ==
[~2017-10-03] VITALS: Ht 170.2 cm; Wt 68.0 kg
[~2017-10-03 03:33] MED LIST changes: +METO5TAB95 PO
[2017-10-03 03:48] LABS: GLUCOSE,POINT OF CARE 110 MG/DL (70-110)
[2017-10-03 04:42] LABS: BASOPHILS % (AUTO) 1.3 % (0.0-2.0); EOSINOPHILS % (AUTO) 12.6 % (1.0-6.0); HEMOGLOBIN 14.5 g/dL (13.5-17.5); LYMPHOCYTES # (AUTO) 1.8 K/uL (1.0-4.8); LYMPHOCYTES % (AUTO) 24.8 % (22.0-44.0); MEAN CORPUSCULAR HEMOGLOBIN 31.7 pg (26.0-34.0); MEAN CORPUSCULAR HGB CONC 34.4 G/dL (31.0-37.0); MEAN CORPUSCULAR VOLUME 92 fL (80-100); MONOCYTES # (AUTO) 0.7 K/uL (0.1-1.0); MONOCYTES % (AUTO) 9.4 % (2.0-9.0); NEUTROPHILS # (AUTO) 3.8 K/uL (1.8-7.7); NEUTROPHILS % (AUTO) 51.9 % (40.0-70.0); PLATELET COUNT (AUTO) 177 K/uL (150-450); RED BLOOD CELL COUNT(AUTO) 4.56 MIL/uL (4.50-5.90); RED CELL DISTRIBUTION WIDTH 14.2 % (11.5-14.5)
[2017-10-03 04:50] LABS: CALCIUM, TOTAL 9.4 mg/dL (8.8-10.5); CREATININE 10.01 mg/dL (0.60-1.30); POTASSIUM 4.6 mmol/L (3.5-5.1)
[2017-10-03 04:56] LABS: ALBUMIN 3.7 g/dL (3.4-5.0); BILIRUBIN,TOTAL 0.6 mg/dL (0.1-1.0); TOTAL PROTEIN, SERUM 8.2 g/dL (6.4-8.2)
[2017-10-03 05:00] VITALS: BP 146/74
== END 2017-10-03 05:48 | disposition home or self-care (01) ==
LOC: EMS 03:34
DX: I12.0 Hypertensive chronic kidney disease with stage 5 chronic kidney disease or end stage renal disease (principal); E11.22 Type 2 diabetes mellitus with diabetic chronic kidney disease; N18.6 End stage renal disease; Z99.2 Dependence on renal dialysis; Z79.4 Long term (current) use of insulin
CPT/HCPCS: 82962; 99284

== ENCOUNTER 2018-07-22 18:53 | Emergency (ER) | payer OTHER ==
[~2018-07-22] VITALS: Ht 170.2 cm; Wt 70.0 kg
[2018-07-22] MEDS ORDERED: OMEP20CA10 PO (19:21)
[2018-07-22] MEDS ORDERED: DOCU250C16 PO (19:21)
[2018-07-22] MEDS ORDERED: GLIM1TAB2 PO (19:21)
[2018-07-22] MEDS ORDERED: FOLI1CAP16 PO (19:21)
[2018-07-22] MEDS ORDERED: HYDR25TA84 PO (19:21)
[2018-07-22] MEDS ORDERED: METO-408 PO (19:21)
[2018-07-22 19:38] LABS: GLUCOSE,POINT OF CARE 104 MG/DL (70-110)
[2018-07-22 20:05] LABS: BASOPHILS % (AUTO) 0.6 % (0.0-2.0); EOSINOPHILS % (AUTO) 0.1 % (1.0-6.0); HEMATOCRIT 34.9 % (41-53); HEMOGLOBIN 11.8 g/dL (13.5-17.5); LYMPHOCYTES # (AUTO) 0.7 K/uL (1.0-4.8); LYMPHOCYTES % (AUTO) 8.5 % (22.0-44.0); MEAN CORPUSCULAR HEMOGLOBIN 30.2 pg (26.0-34.0); MEAN CORPUSCULAR HGB CONC 33.7 G/dL (31.0-37.0); MEAN CORPUSCULAR VOLUME 90 fL (80-100); MONOCYTES # (AUTO) 0.5 K/uL (0.1-1.0); MONOCYTES % (AUTO) 5.5 % (2.0-9.0); NEUTROPHILS # (AUTO) 7.3 K/uL (1.8-7.7); NEUTROPHILS % (AUTO) 85.3 % (40.0-70.0); PLATELET COUNT (AUTO) 214 K/uL (150-450); RED BLOOD CELL COUNT(AUTO) 3.89 MIL/uL (4.50-5.90); RED CELL DISTRIBUTION WIDTH 14.1 % (11.5-14.5)
[2018-07-22 20:08] LABS: APPEARANCE,URINE CLEAR (CLEAR); BILIRUBIN,URINE NEGATIVE (NEGATIVE); GLUCOSE, URINE (UA) 100 mg/dL (NEGATIVE); KETONES,URINE NEGATIVE (NEGATIVE); LEUKOCYTE ESTERASE ,URINE NEGATIVE (NEGATIVE); NITRATE,URINE NEGATIVE (NEGATIVE); OCCULT BLOOD,URINE NEGATIVE (NEGATIVE); PH,URINE 8.5 (5.0-8.0); PROTEIN,URINE SEE CONFIRM (NEGATIVE); UROBILINOGEN,URINE 0.2 mg/dL (<=1.0)
[2018-07-22 20:15] LABS: CALCIUM, TOTAL 9.9 mg/dL (8.8-10.5); CREATININE 7.13 mg/dL (0.60-1.30)
[2018-07-22 20:21] LABS: ALBUMIN 3.8 g/dL (3.4-5.0); BILIRUBIN,TOTAL 0.6 mg/dL (0.1-1.0); TOTAL PROTEIN, SERUM 8.2 g/dL (6.4-8.2)
[2018-07-22 20:26] LABS: BACTERIA,URINE Rare /HPF (None Seen); RBC,URINE 0-2 /HPF (0-2); SULFOSALICYLIC ACID,URINE 3+ (Negative); WBC,URINE 0-2 /HPF (0-5)
[2018-07-22 20:27] LABS: SQUAMOUS EPITHELIAL CELL,UR Rare /LPF (None Seen)
[2018-07-22 20:54] LABS: PLATELET MORPHOLOGY COMMENT NORMAL
[2018-07-22 22:26] VITALS: BP 154/67
[2018-07-22] MEDS ORDERED: METOCLOPRAMIDE HCL 5 MG/ML 2 ML VIAL IVP ONE (22:30)
[2018-07-22] MEDS ORDERED: SODIUM CHLORIDE 0.9% 500 ML IV ONE (22:30)
== END 2018-07-22 23:04 | disposition home or self-care (01) ==
LOC: EMS 18:54
DX: R11.2 Nausea with vomiting, unspecified (principal); R63.0 Anorexia; E11.22 Type 2 diabetes mellitus with diabetic chronic kidney disease; I12.0 Hypertensive chronic kidney disease with stage 5 chronic kidney disease or end stage renal disease; N18.6 End stage renal disease; D64.9 Anemia, unspecified; E11.40 Type 2 diabetes mellitus with diabetic neuropathy, unspecified; Z99.2 Dependence on renal dialysis; Z79.4 Long term (current) use of insulin; Z79.899 Other long term (current) drug therapy
CPT/HCPCS: 36415; 80053; 81001; 82962; 83690; 84484; 85025; 93005; 96374; 99284; J2765; J7030

== ENCOUNTER 2018-08-05 10:12 | Emergency (ER) | payer OTHER ==
[~2018-08-05] VITALS: Ht 170.2 cm; Wt 69.0 kg
[~2018-08-05 10:12] MED LIST changes: +DOCU250C16 PO; +FOLI1CAP16 PO; +GLIM1TAB2 PO; +HYDR25TA84 PO; +METO-408 PO; +OMEP20CA10 PO
[2018-08-05 10:38] LABS: GLUCOSE,POINT OF CARE 69 MG/DL (70-110)
[2018-08-05 11:33] LABS: GLUCOSE,POINT OF CARE 138 MG/DL (70-110)
[2018-08-05 12:55] LABS: BASOPHILS % (AUTO) 0.6 % (0.0-2.0); EOSINOPHILS % (AUTO) 1.4 % (1.0-6.0); HEMATOCRIT 32.9 % (41-53); HEMOGLOBIN 11.1 g/dL (13.5-17.5); LYMPHOCYTES # (AUTO) 1.3 K/uL (1.0-4.8); LYMPHOCYTES % (AUTO) 15.5 % (22.0-44.0); MEAN CORPUSCULAR HEMOGLOBIN 30.3 pg (26.0-34.0); MEAN CORPUSCULAR HGB CONC 33.8 G/dL (31.0-37.0); MEAN CORPUSCULAR VOLUME 90 fL (80-100); MONOCYTES # (AUTO) 0.6 K/uL (0.1-1.0); MONOCYTES % (AUTO) 6.9 % (2.0-9.0); NEUTROPHILS # (AUTO) 6.4 K/uL (1.8-7.7); NEUTROPHILS % (AUTO) 75.6 % (40.0-70.0); PLATELET COUNT (AUTO) 213 K/uL (150-450); RED BLOOD CELL COUNT(AUTO) 3.67 MIL/uL (4.50-5.90); RED CELL DISTRIBUTION WIDTH 14.3 % (11.5-14.5)
[2018-08-05 13:05] LABS: CALCIUM, TOTAL 10.1 mg/dL (8.8-10.5); CREATININE 7.33 mg/dL (0.60-1.30); POTASSIUM 3.9 mmol/L (3.5-5.1)
[2018-08-05 13:11] LABS: ALBUMIN 3.6 g/dL (3.4-5.0); BILIRUBIN,TOTAL 0.6 mg/dL (0.1-1.0)
[2018-08-05 14:57] LABS: APPEARANCE,URINE CLEAR (CLEAR); BILIRUBIN,URINE NEGATIVE (NEGATIVE); GLUCOSE, URINE (UA) NEGATIVE (NEGATIVE); KETONES,URINE NEGATIVE (NEGATIVE); LEUKOCYTE ESTERASE ,URINE NEGATIVE (NEGATIVE); NITRATE,URINE NEGATIVE (NEGATIVE); OCCULT BLOOD,URINE NEGATIVE (NEGATIVE); PROTEIN,URINE SEE CONFIRM (NEGATIVE); UROBILINOGEN,URINE 0.2 mg/dL (<=1.0)
[2018-08-05 15:28] LABS: SULFOSALICYLIC ACID,URINE 3+ (Negative)
[2018-08-05 15:29] LABS: BACTERIA,URINE Few /HPF (None Seen); RBC,URINE 0-2 /HPF (0-2); SQUAMOUS EPITHELIAL CELL,UR Rare /LPF (None Seen)
[2018-08-05 18:50] VITALS: BP 143/87
== END 2018-08-05 18:52 | disposition home or self-care (01) ==
LOC: EMS 10:13
DX: R42 Dizziness and giddiness (principal); R51 Headache; I12.0 Hypertensive chronic kidney disease with stage 5 chronic kidney disease or end stage renal disease; E11.22 Type 2 diabetes mellitus with diabetic chronic kidney disease; N18.6 End stage renal disease; M54.2 Cervicalgia; Z99.2 Dependence on renal dialysis; Z79.4 Long term (current) use of insulin
CPT/HCPCS: 70450; 87086; 93005

== ENCOUNTER 2020-08-30 14:06 | Inpatient (IN) | payer OTHER ==
[~2020-08-30] VITALS: Ht 172.7 cm; Wt 70.3 kg
[~2020-08-30 14:06] MED LIST changes: +AMLO-258 PO; -AMLO-512 PO; +GABA-1216 PO; -GABA-529 PO; +GLIM1TAB18 PO; -GLIM1TAB2 PO; -OMEP20CA10 PO; +OMEP20CA12 PO
[2020-08-30] MEDS ORDERED: ASPIRIN 81 MG CHEWABLE TABLET PO ONE (15:15)
[2020-08-30] MEDS ORDERED: FOLI0.8T2 PO (15:20)
[2020-08-30] MEDS ORDERED: ONDANSETRON HCL 4 MG/2 ML VIAL IVP ONE (15:30)
[2020-08-30 16:00] LABS: BASOPHILS % (AUTO) 0.7 % (0.0-2.0); EOSINOPHILS % (AUTO) 0.5 % (1.0-6.0); HEMATOCRIT 32.7 % (41-53); HEMOGLOBIN 11.1 g/dL (13.5-17.5); LYMPHOCYTES # (AUTO) 1.2 K/uL (1.0-4.8); LYMPHOCYTES % (AUTO) 15.9 % (22.0-44.0); MEAN CORPUSCULAR HEMOGLOBIN 29.8 pg (26.0-34.0); MEAN CORPUSCULAR VOLUME 88 fL (80-100); MONOCYTES # (AUTO) 0.6 K/uL (0.1-1.0); MONOCYTES % (AUTO) 7.5 % (2.0-9.0); NEUTROPHILS # (AUTO) 5.7 K/uL (1.8-7.7); NEUTROPHILS % (AUTO) 75.4 % (40.0-70.0); PLATELET COUNT (AUTO) 176 K/uL (150-450); RED BLOOD CELL COUNT(AUTO) 3.73 MIL/uL (4.50-5.90); RED CELL DISTRIBUTION WIDTH 14.1 % (11.5-14.5)
[2020-08-30] MEDS ORDERED: ONDANSETRON HCL 4 MG/2 ML VIAL IM ONE (16:00)
[2020-08-30 16:17] LABS: CALCIUM, TOTAL 9.8 mg/dL (8.8-10.5); CREATININE 6.91 mg/dL (0.60-1.30); POTASSIUM 4.1 mmol/L (3.5-5.1)
[2020-08-30 16:23] LABS: ALBUMIN 3.9 g/dL (3.4-5.0); BILIRUBIN,TOTAL 0.7 mg/dL (0.1-1.0)
[2020-08-30 16:36] LABS: COVID AG,FIA SOURCE NASOPHARYNGEAL
[2020-08-30] MEDS ORDERED: 0.9% SODIUM CHLORIDE 10 ML SYRINGE IVP PRN (16:45)
[2020-08-30] MEDS ORDERED: ONDANSETRON HCL 4 MG/2 ML VIAL IVP PRN ×2 (16:45→17:30)
[2020-08-30] MEDS ORDERED: ACETAMINOPHEN 325 MG TABLET PO PRN ×2 (16:45→17:30)
[2020-08-30 17:15] LABS: APPEARANCE,URINE CLEAR (CLEAR); BILIRUBIN,URINE NEGATIVE (NEGATIVE); GLUCOSE, URINE (UA) 250 mg/dL (NEGATIVE); KETONES,URINE NEGATIVE (NEGATIVE); LEUKOCYTE ESTERASE ,URINE NEGATIVE (NEGATIVE); NITRATE,URINE NEGATIVE (NEGATIVE); OCCULT BLOOD,URINE TRACE (NEGATIVE); PH,URINE 8.5 (5.0-8.0); PROTEIN,URINE SEE CONFIRM (NEGATIVE); UROBILINOGEN,URINE 0.2 mg/dL (<=1.0)
[2020-08-30 17:19] LABS: SULFOSALICYLIC ACID,URINE 2+ (Negative)
[2020-08-30 17:20] LABS: BACTERIA,URINE None Seen /HPF (None Seen); SQUAMOUS EPITHELIAL CELL,UR Rare /LPF (None Seen); WBC,URINE 0-2 /HPF (0-5)
[2020-08-30] MEDS ORDERED: MORPHINE SULFATE 2 MG/ML SYRINGE IVP PRN (17:30)
[2020-08-30] MEDS ORDERED: BISACODYL 10 MG RECTAL RECTAL SUPPOSITORY PR PRN (17:30)
[2020-08-30] MEDS ORDERED: ZOLPIDEM TARTRATE 5 MG TABLET PO PRN (17:30)
[2020-08-30] MEDS ORDERED: HYDROCODONE/ACETAMINOPHEN 5-325 MG TABLET PO PRN (17:30)
[2020-08-30] MEDS ORDERED: MAGNESIUM HYDROXIDE SUSPENSION 30 ML UDCUP PO PRN (17:30)
[2020-08-30] MEDS: FERROUS SULFATE 325 MG EC TABLET PO SCH ×2 (17:30→18:00)
[2020-08-30 18:40] VITALS: BP 156/66
[2020-08-30 19:25] VITALS: BP 150/59
[2020-08-30] MEDS ORDERED: METOCLOPRAMIDE HCL 5 MG TABLET PO SCH (21:00)
[2020-08-30 23:42] VITALS: BP 157/61
[2020-08-31] MEDS: METOCLOPRAMIDE HCL 5 MG/ML 2 ML VIAL IVP SCH ×3 (01:28→16:00)
[2020-08-31] MEDS: MetroNIDAZOLE 500 MG/NACL 100 ML IV SCH ×4 (01:28→21:37)
[2020-08-31] MEDS: HEPARIN SODIUM,PORCINE 5,000 UNITS/ML VIAL SQ SCH ×3 (01:29→16:00)
[2020-08-31] MEDS: CALCIUM OYSTER SHELL 500 MG TABLET PO SCH ×4 (01:29→21:30)
[2020-08-31] MEDS: DOCUSATE SODIUM 100 MG CAPSULE PO SCH ×3 (01:29→21:00)
[2020-08-31] MEDS: HydrALAZINE HCL 25 MG TABLET PO SCH ×3 (01:30→21:30)
[2020-08-31] MEDS: GABAPENTIN 100 MG CAPSULE PO SCH ×2 (01:30→21:30)
[2020-08-31 03:52] VITALS: BP 148/64
[2020-08-31] MEDS ORDERED: PNEUMOCOCCAL VACCINE POLYVALENT 0.5 ML VIAL [PPSV23] IM ONE (06:30)
[2020-08-31] MEDS ORDERED: INFLUENZA VIRUS VACCINE QVS 2020-21 (6MO+)/PF 60 MCG/0.5 ML SYRINGE IM ONE (06:30)
[2020-08-31] MEDS: PANTOPRAZOLE SODIUM 40 MG DR TABLET PO SCH ×2 (06:50→17:30)
[2020-08-31 07:34] VITALS: BP 151/63
[2020-08-31] MEDS: FERROUS SULFATE 325 MG EC TABLET PO SCH ×2 (08:51→21:30)
[2020-08-31] MEDS: VITAMIN B COMP/VIT C/FOLIC ACID CAPSULE PO SCH (08:51)
[2020-08-31] MEDS: GLIMEPIRIDE 2 MG TABLET PO SCH (08:52)
[2020-08-31] MEDS: AmLODIPine BESYLATE 10 MG TABLET PO SCH (08:52)
[2020-08-31] MEDS: METOPROLOL SUCCINATE 25 MG ER TABLET PO SCH (08:53)
[2020-08-31] MEDS ORDERED: PANTOPRAZOLE SODIUM 40 MG DR TABLET PO SCH (09:00)
[2020-08-31 11:10] VITALS: BP 131/54
[2020-08-31 15:04] VITALS: BP 142/58
[2020-08-31] MEDS ORDERED: SODIUM CHLORIDE 0.9% 1,000 ML ONE (15:42)
[2020-08-31 19:31] VITALS: BP 146/76
[2020-08-31 21:20] VITALS: BP 155/57
[2020-09-01 00:17] VITALS: BP 120/64
[2020-09-01] MEDS: HEPARIN SODIUM,PORCINE 5,000 UNITS/ML VIAL SQ SCH ×3 (00:49→17:02)
[2020-09-01] MEDS: MetroNIDAZOLE 500 MG/NACL 100 ML IV SCH (04:07)
[2020-09-01 04:30] VITALS: BP 138/49
[2020-09-01] MEDS: PANTOPRAZOLE SODIUM 40 MG DR TABLET PO SCH ×2 (05:56→17:02)
[2020-09-01 06:38] LABS: BASOPHILS % (AUTO) 1.4 % (0.0-2.0); EOSINOPHILS % (AUTO) 5.5 % (1.0-6.0); HEMATOCRIT 31.1 % (41-53); HEMOGLOBIN 10.6 g/dL (13.5-17.5); LYMPHOCYTES # (AUTO) 1.4 K/uL (1.0-4.8); LYMPHOCYTES % (AUTO) 23.3 % (22.0-44.0); MEAN CORPUSCULAR HEMOGLOBIN 30.2 pg (26.0-34.0); MEAN CORPUSCULAR VOLUME 89 fL (80-100); MONOCYTES # (AUTO) 0.8 K/uL (0.1-1.0); MONOCYTES % (AUTO) 13.3 % (2.0-9.0); NEUTROPHILS # (AUTO) 3.5 K/uL (1.8-7.7); NEUTROPHILS % (AUTO) 56.5 % (40.0-70.0); PLATELET COUNT (AUTO) 157 K/uL (150-450); RED BLOOD CELL COUNT(AUTO) 3.51 MIL/uL (4.50-5.90); RED CELL DISTRIBUTION WIDTH 14.2 % (11.5-14.5)
[2020-09-01 07:06] LABS: ALBUMIN 3.4 g/dL (3.4-5.0); BILIRUBIN,TOTAL 0.7 mg/dL (0.1-1.0); CALCIUM, TOTAL 9.1 mg/dL (8.8-10.5); CREATININE 5.49 mg/dL (0.60-1.30); POTASSIUM 3.9 mmol/L (3.5-5.1); TOTAL PROTEIN, SERUM 7.1 g/dL (6.4-8.2)
[2020-09-01 07:41] VITALS: BP 152/65
[2020-09-01] MEDS: METOCLOPRAMIDE HCL 5 MG/ML 2 ML VIAL IVP SCH ×3 (08:00→16:00)
[2020-09-01] MEDS: DOCUSATE SODIUM 100 MG CAPSULE PO SCH ×2 (09:00→20:01)
[2020-09-01] MEDS: AmLODIPine BESYLATE 10 MG TABLET PO SCH (09:17)
[2020-09-01] MEDS: CALCIUM OYSTER SHELL 500 MG TABLET PO SCH ×3 (09:17→20:01)
[2020-09-01] MEDS: HydrALAZINE HCL 25 MG TABLET PO SCH ×2 (09:17→20:01)
[2020-09-01] MEDS: VITAMIN B COMP/VIT C/FOLIC ACID CAPSULE PO SCH (09:17)
[2020-09-01] MEDS: METOPROLOL SUCCINATE 25 MG ER TABLET PO SCH (09:17)
[2020-09-01] MEDS: FERROUS SULFATE 325 MG EC TABLET PO SCH ×2 (09:18→17:02)
[2020-09-01] MEDS: GLIMEPIRIDE 2 MG TABLET PO SCH (09:18)
[2020-09-01 11:34] VITALS: BP 138/55
[2020-09-01] MEDS ORDERED: B CO1CAP6 PO (12:58)
[2020-09-01] MEDS ORDERED: ACET-2247 PO (13:00)
[2020-09-01 15:55] VITALS: BP 123/64
[2020-09-01] MEDS ORDERED: LIDOCAINE/PF 1% 2 ML VIAL SQ ONE (16:17)
[2020-09-01 19:49] VITALS: BP 125/49
[2020-09-01] MEDS: GABAPENTIN 100 MG CAPSULE PO SCH (20:00)
[2020-09-02] MEDS: HEPARIN SODIUM,PORCINE 5,000 UNITS/ML VIAL SQ SCH ×3 (00:35→16:00)
[2020-09-02 01:12] VITALS: BP 154/64
[2020-09-02 04:46] VITALS: BP 153/61
[2020-09-02] MEDS: PANTOPRAZOLE SODIUM 40 MG DR TABLET PO SCH (06:09)
[2020-09-02] MEDS: METOCLOPRAMIDE HCL 5 MG/ML 2 ML VIAL IVP SCH ×2 (08:00)
[2020-09-02] MEDS: GLIMEPIRIDE 2 MG TABLET PO SCH (08:00)
[2020-09-02] MEDS: FERROUS SULFATE 325 MG EC TABLET PO SCH (08:00)
[2020-09-02 08:28] VITALS: BP 135/52
[2020-09-02] MEDS: METOPROLOL SUCCINATE 25 MG ER TABLET PO SCH (09:00)
[2020-09-02] MEDS: VITAMIN B COMP/VIT C/FOLIC ACID CAPSULE PO SCH (09:00)
[2020-09-02] MEDS: HydrALAZINE HCL 25 MG TABLET PO SCH (09:00)
[2020-09-02] MEDS: DOCUSATE SODIUM 100 MG CAPSULE PO SCH (09:00)
[2020-09-02] MEDS: AmLODIPine BESYLATE 10 MG TABLET PO SCH (09:00)
[2020-09-02] MEDS: CALCIUM OYSTER SHELL 500 MG TABLET PO SCH (09:00)
[2020-09-02 11:25] VITALS: BP 161/58
[2020-09-02 12:52] LABS: GLUCOMETER DEV NAME(LOC) 5S.2B; GLUCOSE,POINT OF CARE 127 MG/DL (70-110)
[2020-09-02 16:15] VITALS: BP 137/56
== END 2020-09-02 17:00 | disposition home or self-care (01) | DRG 48 ==
LOC: EMS 14:12 → 5S 17:39
PROVIDERS: ADMIT Internal Medicine; ATTEND Internal Medicine
DX: E11.43 Type 2 diabetes mellitus with diabetic autonomic (poly)neuropathy (principal); K21.9 Gastro-esophageal reflux disease without esophagitis; A08.39 Other viral enteritis; K31.84 Gastroparesis; I12.0 Hypertensive chronic kidney disease with stage 5 chronic kidney disease or end stage renal disease; N18.6 End stage renal disease; E11.22 Type 2 diabetes mellitus with diabetic chronic kidney disease; E11.65 Type 2 diabetes mellitus with hyperglycemia; D63.8 Anemia in other chronic diseases classified elsewhere; E78.5 Hyperlipidemia, unspecified; Z99.2 Dependence on renal dialysis; Z82.49 Family history of ischemic heart disease and other diseases of the circulatory system; Z87.891 Personal history of nicotine dependence; I16.0 Hypertensive urgency; E11.40 Type 2 diabetes mellitus with diabetic neuropathy, unspecified; Z79.899 Other long term (current) drug therapy; Z20.822 Contact with and (suspected) exposure to COVID-19
CPT/HCPCS: 87081; 87340; 87426; 93005; 93306; 99285; J1644; J2405; J2765; J3490; J7030; 36415-L1; 36415-TC; 71045-TC

== ENCOUNTER 2022-09-28 06:30 | Day surgery (SDC) | payer OTHER ==
[~2022-09-28] VITALS: Ht 171.4 cm; Wt 66.5 kg
[~2022-09-28 06:30] MED LIST changes: +ACET-2247 PO; +B CO1CAP6 PO; -FERR-89 PO; +FERR325T27 PO; +FOLI0.8T2 PO; -FOLI1CAP16 PO; -FOLI1CAP2 PO; -OS500 PO
[2022-09-28] MEDS ORDERED: BENZOCAINE 20% 50 MCG/SPRAY 57 GM TP ONE (06:31)
[2022-09-28] MEDS ORDERED: LIDOCAINE 2% 11 ML JELLY TP ONE (06:31)
[2022-09-28] MEDS ORDERED: LIDOCAINE 4% 50 ML SOLUTION TP ONE (06:31)
[2022-09-28] MEDS ORDERED: ALBUTEROL SULFATE 2.5 MG/0.5 ML NEB SOLUTION NEB ONE (06:31)
[2022-09-28] MEDS ORDERED: SODIUM CHLORIDE 0.9% 1,000 ML IV ONE (07:00)
[2022-09-28] MEDS ORDERED: SODIUM CHLORIDE 0.9% 1,000 ML ONE (07:31)
[2022-09-28 08:06] LABS: GLUCOMETER DEV NAME(LOC) SDS.; GLUCOSE,POINT OF CARE 91 MG/DL (70-110)
[2022-09-28] MEDS ORDERED: FentaNYL CITRATE PF 100 MCG/2 ML VIAL ONE (08:52)
[2022-09-28] MEDS ORDERED: MIDAZOLAM HCL 2 MG/2 ML VIAL ONE (08:52)
[2022-09-28] MEDS ORDERED: MethylPREDNISolone SOD SUCC 125 MG/2 ML VIAL ONE (09:23)
[2022-09-28] MEDS ORDERED: MethylPREDNISolone SOD SUCC 125 MG/2 ML VIAL IVP ONE (09:45)
== END 2022-09-28 12:40 | disposition home or self-care (01) ==
LOC: SURGERY 06:30
PROVIDERS: ATTEND Internal Medicine Critical Care Medicine
DX: R05.9 Cough, unspecified (principal); R91.1 Solitary pulmonary nodule; J98.09 Other diseases of bronchus, not elsewhere classified; J98.8 Other specified respiratory disorders; E78.00 Pure hypercholesterolemia, unspecified; M19.90 Unspecified osteoarthritis, unspecified site; N18.9 Chronic kidney disease, unspecified; Z79.899 Other long term (current) drug therapy; Z87.891 Personal history of nicotine dependence; Z98.890 Other specified postprocedural states; Z20.822 Contact with and (suspected) exposure to COVID-19; Z72.89 Other problems related to lifestyle
CPT/HCPCS: 31623; 88112; 82962; 87206; 87101; 87220; 87070; 31624; 94640; 71045; 87015; 93005; J3010; J2250; J2930; Q9967; J7030; J7613; Z7610

== ENCOUNTER 2024-02-25 05:48 | Day surgery (SDC) | payer OTHER ==
[~2024-02-25] VITALS: Ht 171.4 cm; Wt 66.3 kg
[~2024-02-25 05:48] MED LIST changes: -FOLI0.8T2 PO; +FOLI0.8T54 PO; -GLIM1TAB18 PO; +GLIM1TAB56 PO
[2024-02-25] MEDS ORDERED: BENZOCAINE 20% 50 MCG/SPRAY 57 GM TP ONE (05:49)
[2024-02-25] MEDS ORDERED: LIDOCAINE 4% 50 ML SOLUTION TP ONE (05:49)
[2024-02-25] MEDS ORDERED: LIDOCAINE 2% 11 ML JELLY TP ONE (05:49)
[2024-02-25] MEDS ORDERED: SODIUM CHLORIDE 0.9% 1,000 ML ONE (06:35)
[2024-02-25] MEDS ORDERED: FentaNYL CITRATE PF 100 MCG/2 ML VIAL ONE (07:25)
[2024-02-25] MEDS ORDERED: MIDAZOLAM HCL 2 MG/2 ML VIAL ONE (07:26)
[2024-02-25] MEDS: SODIUM CHLORIDE 0.9% 1,000 ML IV ONE (07:44)
[2024-02-25 08:00] LABS: GLUCOMETER DEV NAME(LOC) SDS.; GLUCOSE,POINT OF CARE 77 MG/DL (70-110)
[2024-02-25 08:50] VITALS: PULSE 72; RESP 21; O2SAT 98
[2024-02-25] MEDS ORDERED: MethylPREDNISolone SOD SUCC 125 MG/2 ML VIAL ONE (09:05)
[2024-02-25] MEDS: MethylPREDNISolone SOD SUCC 125 MG/2 ML VIAL IVP ONE (09:40)
== END 2024-02-25 12:30 | disposition home or self-care (01) ==
LOC: SURGERY 05:48
PROVIDERS: ATTEND Internal Medicine Critical Care Medicine
DX: R05.3 Chronic cough (principal); J38.4 Edema of larynx; B37.0 Candidal stomatitis; R04.2 Hemoptysis; J98.09 Other diseases of bronchus, not elsewhere classified; J84.10 Pulmonary fibrosis, unspecified; J98.8 Other specified respiratory disorders; I70.0 Atherosclerosis of aorta; I10 Essential (primary) hypertension; R91.8 Other nonspecific abnormal finding of lung field; E11.9 Type 2 diabetes mellitus without complications; M19.90 Unspecified osteoarthritis, unspecified site; E78.00 Pure hypercholesterolemia, unspecified; Z85.21 Personal history of malignant neoplasm of larynx; Z98.890 Other specified postprocedural states; Z79.899 Other long term (current) drug therapy
CPT/HCPCS: 31623; 93005; 82962; 87206; 87101; 87220; 87070; 88108; 31624; 71045; 87015; J3010; J2250; J2919; J7030; Z7610